=== PATIENT | female | born 2000 | race Caucasian/White ===

== ENCOUNTER 2021-04-25 14:05 | Emergency (ER) | payer OTHER, SELFPAY ==
[2021-04-25 14:22] VITALS: BP 127/58; PULSE 82; RESP 20; TEMP 37.3; O2SAT 100
--- NOTE | 2021-04-25 14:22 | ED.DIZZY ---
HPI - Dizziness General Chief Complaint: Dizziness Stated Complaint: Dizziness/Blood pressure high/Body shakes Time Seen by Provider: 04/25/21 14:22 Source: patient and RN notes reviewed History of Present Illness HPI Narrative: Patient is a 20-year-old female who presents the urgent care with complaints of intermittent dizziness with high blood pressure. Patient states that on Saturday she felt really dizzy, checked her blood sugar which was high, but felt better after eating an apple. Patient states that she was fine all weekend and was pushing fluids drinking a lot of water. Patient states that she started to feel the dizziness while at work today, ate a cookie and felt fine. Patient states that after lunch the dizziness returned, her blood pressure was high again at 158/85, and she had a near syncopal episode. Patient states that she has multiple diabetics in her family but has never been diagnosed with diabetes or low/high blood sugars. Patient denies of any new medications or supplements. Denies of any recent change in her diet. Patient states that she is having some slight dizziness now but denies any of any other issues. No other acute complaints. No acute distress noted. Patient aware of the plan of care. Some parts of this dictation were generated by voice recognition software and may contain typographical and/or grammatical inaccuracies. Related Data Allergies Allergy/AdvReac Type Severity Reaction Status Date / Time almond Allergy Hives Verified 04/25/21 14:24 Review of Systems Review of Systems: Narrative: CONSTITUTIONAL: Denies fever, chills, or sweats. EYES: Denies visual changes, redness, or discharge. ENT: Denies rhinorrhea, congestion, sore throat, or otalgia. CARDIOVASCULAR: Denies chest pain, palpitations, or edema. Reports of intermittent high blood pressure readings RESPIRATORY: Denies cough or dyspnea. GASTROINTESTINAL: Denies abdominal pain, nausea, vomiting, or diarrhea. GENITOURINARY: Denies dysuria or hematuria. SKIN: Denies rash or itching. MUSCULOSKELETAL: Denies back pain, joint pain, or myalgia. NEUROLOGIC: Denies headache, numbness, or weakness. Reports of intermittent dizziness All other systems reviewed are negative, except as documented in HPI. [facility] Social History Social History Gender identity (if verbalized by the patient): Female Comments At the time of my signature, I reviewed and agree with the nursing past medical, surgical, social, and family history. There is no relevant family history pertinent to the patient complaint. Exam Narrative: Exam Narrative: GENERAL: This is a well-nourished, well-developed patient, in no apparent distress. HEAD: normocephalic, atraumatic. EYES: PERRL. Sclera clear/white. Vision is grossly intact. EARS: External ears normal, auditory canals clear and without drainage, moderate fluid noted behind right TM, left TM normal without perforation. Hearing grossly intact. NOSE: External nose normal with no obvious nasal discharge, nares without redness, no rhinorrhea. THROAT: Mucous membranes moist, posterior pharynx clear. NECK: Neck supple CARDIOVASCULAR: Regular rate and rhythm without murmurs, gallops, or rubs. RESPIRATORY: Clear to auscultation. Breath sounds equal bilaterally. No wheezes, rales, or rhonchi. SKIN: warm, intact with no suspicious lesions or rash, good texture and turgor. NEURO: awake, alert, and oriented to person, place and time. There were no obvious focal neurologic abnormalities. EXTREMITIES: No clubbing, cyanosis, or edema. Course Vital Signs Vital signs: Vital Signs Temperature 99.2 F 04/25/21 14:22 Pulse Rate 82 04/25/21 14:22 Respiratory Rate 20 04/25/21 14:22 Blood Pressure 127/58 L 04/25/21 14:22 Pulse Oximetry 100 04/25/21 14:22 Temperature 99.2 F 04/25/21 14:22 Pulse Rate 82 04/25/21 14:22 Respiratory Rate 20 04/25/21 14:22 Blood Pressure 127/58 L 04/25/21 14:22 Pulse Oximetry 100
[2021-04-25 14:33] LABS: Glucose Point of Care 103 mg/dl (65-105)
--- NOTE | 2021-04-25 14:57 | PC.NURSE ---
BLOOD GLUCOSE FINGER STICK 103 AT 1430.
== END 2021-04-25 14:50 | disposition home or self-care (01) ==
PROVIDERS: Emergency Provider Nurse Practitioner Family; PCP Pediatrics
DX: H92.01 Otalgia, right ear (principal); R42 Dizziness and giddiness
CPT/HCPCS: 81003; 82948; 99213; G0463

== ENCOUNTER 2024-04-26 09:17 | Emergency (ER) | payer BC, SELFPAY ==
--- NOTE | 2024-04-26 09:30 | ED.ALLEREA ---
HPI - Allergic Reaction General Chief complaint: Allergic Reaction Stated complaint: reaction to antibiotic from ER History of Present Illness HPI narrative: patient presents with complaints of allergic reaction to Duricef. Patient states she was at [facility] and given Duricef for UTI . Patient states she was given IV Rocephin in the emergency room and sent home on antibiotic. Patient reports taking 3 doses of medication and broke out in hives after the third dose. Last dose was yesterday morning. Patient states hives have since resolved. no shortness of breath and no chest pain. Patient states urinary tract infection symptoms have also resolved. Patient states highs resolved after she took a Benadryl. Related Data Allergies Allergy/AdvReac Type Severity Reaction Status Date / Time almond Allergy Hives Verified 04/25/21 14:24 Review of Systems Review of Systems: CONSTITUTIONAL: Denies fever, chills, or sweats. EYES: Denies visual changes, redness, or discharge. ENT: Denies rhinorrhea, congestion, sore throat, or otalgia. CARDIOVASCULAR: Denies chest pain, palpitations, or edema. RESPIRATORY: Denies cough or dyspnea. GASTROINTESTINAL: Denies abdominal pain, nausea, vomiting, or diarrhea. GENITOURINARY: Denies dysuria or hematuria. SKIN: Denies rash or itching. MUSCULOSKELETAL: Denies back pain, joint pain, or myalgia. NEUROLOGIC: Denies headache, numbness, or weakness. PSYCHIATRIC: Denies anxiety or depression. PMF[facility] Social History Social History Gender identity (if verbalized by the patient): Female Comments At time of signature, agree with nursing past medical, surgical, social and family history. There is no relevant family history pertinent to the presenting complaint Exam Narrative: GENERAL: Well-appearing, well-nourished, and in no acute distress. HEAD: Normocephalic, atraumatic. EYES: PERRLA and EOMI. ENT: Nares clear, no rhinorrhea or epistaxis. Mucous membranes moist. NECK: Supple. CHEST: Clear to auscultation. No respiratory distress.Resp even and non labored lungs clear all 4 rodriguez. HEART: Regular rate and rhythm. No murmur heard. Normal peripheral pulses. ABDOMEN: Soft, nontender, nondistended, normal active bowel sounds. No flank pain no gross hematuria no abdominal pain and no suprapubic pain EXTREMITIES: Normal range of motion. No edema. SKIN: Warm, dry, no rash. no hives present NEURO: No focal deficits. Alert and oriented x3. Britta Coma Scale Eye Opening: Spontaneous 4 Britta Coma Scale Motor: Obeys Commands 6 Britta Coma Scale Verbal: Oriented 5 [place] Coma Scale Total 15 Course Course Level of Care: Express Care Visit MDM - Allergic Reaction Lab Data Labs: Discussed urinalysis with patient in force need to increase fluids Gatorade propel avoid caffeine and carbonated beverages. Discussed will culture urine and if any bacteria goes will place on antibiotic at that time. Encourage patient to follow-up with primary care provider in 2-3 days for re-evaluation discussed red flags and when to go to ER. Discharge Plan Discharge Clinical Impression: Allergic reaction Patient Disposition: Home, Self-Care Condition: Stable Instructions: Urticaria (ED) Additional Instructions: Instructed to increase fluids avoid caffeine and carbonated beverages Discontinue Duricef Will culture urine and if bacteria grows will place on antibiotic at that time Follow-up with primary care provider in 2-3 days for repeat urinalysis and re-evaluation Discussed red flags and when to go to ER. -Hives are usually caused by skin contact with an irritant such as plants, new foods, new medications, new personal or household products, these can also be caused by viral infection - Cool compresses can be beneficial to help with swelling and itching, please apply these for 20 minutes at a time -If there is possible contact to an allergen to the skin surface area, a shower or bath m
[2024-04-26 09:41] LABS: EDUAAPPEAR Clear; EDUABILI Negative; EDUABLOOD Trace; EDUACOLOR1 Yellow; EDUAGLUCOSE Negative; EDUAKETONE 1+; EDUALEUKO Negative; EDUANITRATE Negative; EDUAPROTEIN 1+; EDUASPGRAVITY 1.015; EDUAUROBILI 0.2
[2024-04-26 14:42] VITALS: BP 105/54; PULSE 90; RESP 20; TEMP 36.1; O2SAT 98
== END 2024-04-26 09:45 | disposition home or self-care (01) ==
PROVIDERS: Emergency Provider Nurse Practitioner Family
DX: T78.40XA Allergy, unspecified, initial encounter (principal)
CPT/HCPCS: 81003; 87086; 99213; G0463